=== PATIENT | male | born 1975 | race Two or more races ===

== ENCOUNTER 2020-10-11 12:29 | Emergency (ER) | payer SELFPAY ==
[~2020-10-11] VITALS: Ht 170.2 cm; Wt 93.0 kg
[2020-10-11 13:29] VITALS: BP 121/83
[2020-10-11] MEDS ORDERED: methylPREDNISolone SOD SUCC 125 MG/2 ML VL IM ONE (15:15)
[2020-10-11] MEDS ORDERED: IPRATROPIUM BROM 0.5 MG/2.5ML INH SOL NEB ONE (15:30)
[2020-10-11] MEDS ORDERED: ALBUTEROL SULF 2.5 MG/0.5ML(0.5%) NEB SOLN NEB ONE (15:30)
== END 2020-10-11 17:29 | disposition home or self-care (01) ==
LOC: ER 12:29
DX: J45.909 Unspecified asthma, uncomplicated (principal); Z87.891 Personal history of nicotine dependence; Z20.822 Contact with and (suspected) exposure to COVID-19
CPT/HCPCS: 36415; 71045; 87426; 94640; 96372; 99284; C9803; J2930; J7644; U0003